=== PATIENT | female | born 1980 | race Caucasian/White ===

== ENCOUNTER 2020-12-14 12:54 | Outpatient (CLI) | payer OTHER, SELFPAY | END 2020-12-14 12:55 | disposition home or self-care (01) | LOC: ONCMED 13:00 | PROVIDERS: PCP Family Medicine; Visit Provider Family Medicine | DX: Z45.2 Encounter for adjustment and management of vascular access device (principal) | CPT/HCPCS: 96523 ==

== ENCOUNTER 2021-01-13 11:00 | Outpatient (CLI) | payer OTHER, SELFPAY | END 2021-01-13 11:01 | disposition home or self-care (01) | LOC: ONCMED 11:03 | PROVIDERS: PCP Family Medicine; Visit Provider Internal Medicine Medical Oncology | DX: Z45.2 Encounter for adjustment and management of vascular access device (principal) | CPT/HCPCS: 96523 ==

== ENCOUNTER 2021-06-10 23:23 | Emergency (ER) | payer OTHER, SELFPAY ==
[2021-06-10 23:43] VITALS: PULSE 70; RESP 18; TEMP 36.7; O2SAT 99; BMI 32.5
--- NOTE | 2021-06-11 00:04 | USR_ITS ---
PROCEDURE INFORMATION: Exam: US Duplex Left Lower Extremity Veins, Limited Exam date and time: 06/11/2021 12:04 AM Age: 40 years old Clinical indication: Pain; Leg, lower; Left; Additional info: HX of dvt, left and pe, - left leg pain TECHNIQUE: Imaging protocol: Real-time Duplex ultrasound of the Left Lower Extremity with 2-D cordon scale, color Doppler flow and spectral waveform analysis with image documentation. Limited exam focused on the left lower extremity veins. COMPARISON: No relevant prior studies available. FINDINGS: Left deep veins: Unremarkable. The common femoral, femoral, proximal profunda femoral and popliteal veins are patent without thrombus. Normal Doppler waveforms. Normal compressibility and/or augmentation response. Left superficial veins: Unremarkable. Saphenofemoral junction is patent without thrombus. Soft tissues: Unremarkable. US/[id number] IMPRESSION: No evidence of deep vein thrombosis. Radiation Dose CTDIVOL = (mGy): DLP = (mGy-cm)
--- NOTE | 2021-06-11 00:06 | W.ED.EXTPRO ---
Documented by User: DAKOTA Barclay 06/11/21 01:51 HPI - Extremity Problem General: Chief complaint: Extremity Problem,Nontraumatic Stated complaint: covid exposure, wanted checked for DVT Time Seen by Provider: 06/10/21 23:56 History of Present Illness: HPI Narrative: Patient complains about left leg pain couple days. 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 After cancer treatment. Patient was on blood thinner x6 months. Patient states that she had COVID symptoms that started approximately 13 days ago. , Diarrhea , nausea and vomiting, muscle, body aches, headache. Patient states she has been measuring her left leg and no real difference in size he should adjust does not feel right. Hurts with movement. Complaint: extremity pain Onset (ago): day(s) Pain Consistency: constant Location: left and lower extremity Severity scale (1-10): 3 Quality: aching Relieving factors: nothing Exacerbating factors: range of motion Associated symptoms: Reports no associated symptoms; Deny chest pain, fever(s) or rash Review of Systems Const: Denies: fever(s), chills or body aches Eyes: Denies: change in vision or blurry vision ENMT: Denies: throat pain or nasal congestion Card: Denies: chest pain or dyspnea on exertion Resp: Denies: dyspnea, productive cough or non-productive cough GI: Denies: abdominal pain, nausea or vomiting Musc: Reports: extremity pain Skin/Breast: Denies: rash Neuro: Denies: headache(s) Psych: Denies: anxiety or depression Jayy/Lymph: Denies: easy bruising PFSH ED PFSH: Medical History Autoimmune cholangitis Cardiac arrhythmia Family history of cancer Family history of cardiac disorder Family history of cardiomyopathy Family history of cerebral palsy Family history of diabetes mellitus Family history of Graves' disease Family history of Parkinson disease Family history of Raynaud's syndrome Family hx-asthma History of asthma History of back pain History of chemotherapy Hx of breast cancer Hx of pulmonary embolus Hx of radiation therapy Personal history of DVT (deep vein thrombosis) Port-A-Cath in place Rectus diastasis of lower abdomen Surgical History History of abdominal surgery History of ERCP History of liver biopsy History of loop recorder History of lymph node dissection of axilla History of oral surgery History of placement of ear tubes History of salpingo-oophorectomy Hx of cholecystectomy Hx of lumpectomy Family History Family/Other Diabetes Cancer Graves disease Cerebral palsy Brother Lung disease Father CAD (coronary artery disease) Stroke Grandfather Parkinson disease Lung disease Dementia Grandmother Cancer Dementia Mother CAD (coronary artery disease) Sister Raynauds disease Denies family history of Clotting disorder Suicide Anesthesia complication Bleeding disorder Social History Smoking and tobacco status: never smoked Alcohol intake: never Physical Exam Const: COMMON NORMALS: no acute distress, average body habitus and patient oriented x3 HENMT: COMMON NORMALS: normocephalic HEAD & SCALP: normal to inspection and normocephalic FACE & SINUS: normal facial exam Eye: COMMON NORMALS: conjunctivae normal GENERAL EYE: appearance normal, both eyes and all related structures CONJUNCTIVA: Yes conjunctivae normal Neck/C-Spine: COMMON NORMALS: no JVD Chest: COMMONS NORMALS: normal inspection of the chest Resp: COMMON NORMALS: normal respiratory effort and clear to auscultation bilaterally AUSCULTATION: clear to auscultation bilaterally Cardio: COMMON NORMALS: no JVD, regular rate and regular rhythm RATE: regular rate RHYTHM: regular rhythm GI: COMMON NORMALS: Normal to inspection, nondistended, normoactive bowel sounds present Extremity: COMMON NORMALS: normal to inspection and full ROM OTHER: Tenderness motion is behind left knee. No redness swelling noted. Homans' sign is negative. Neurovascular status intact. Neuro: COMMON NORMALS: patient oriented x3 Course Vital Signs: Vital signs: Vital Signs Temperature 98.1 F 06/10/21 23:43 Pulse Rate 78 06/11/21 01:54 Respiratory Rate 18 06/11/21 01:54 Blood Pressure 124/78 06/11/21 01:54 Pulse Oximetry 98 06/11/21 01:54 MDM - Extremity (Nontraumatic) MDM Narrative: Medical decision making narrative: Patient with diagnosis acute left leg pain. Most likely related to her recent bout with Covid type symptoms. I suspect muscle inflammation or pull. Radiology ultrasound today was negative for DVT. Patient has no other presenting signs symptoms. Patient will follow-up primary care provider as necessary. Discharge Plan Discharge Patient Disposition: Home Clinical Impression: Left leg pain Condition: Stable Prescriptions: No Action gabapentin 300 mg capsule 300 mg PO TID RF: 0 albuterol sulfate 90 mcg/actuation HFA aerosol inhaler 2 puff inhalation Q6H PRNRF: 0 celecoxib [Celebrex] 200 mg capsule 200 mg PO DAILY RF: 0 metoprolol succinate 25 mg tablet extended release 24 hr 12.5 mg PO DAILY RF: 0 Discharge Orders: Discharge ED (Routine); Ordered 06/11/21 Ordered By: aFb Elmore Referrals: Radha Pardo MD [Primary Care Provider] - Discharge Diet: Usual diet Discharge Activity: Resume usual activity Activity Restrictions/Additional Instructions: Can take Tylenol or ibuprofen for discomfort. Can use moist heat. Follow-up your family medical provider if no significant improvement. Coding Level of Care Code ED Glass Blowing Lathe Operator for Chg Fwd Exam Comprehensive Documented by User: Hector Sandoval DO 06/11/21 02:29 HPI - Extremity Problem General: Chief complaint: Extremity Problem,Nontraumatic Stated complaint: covid exposure, wanted checked for DVT Time Seen by Provider: 06/10/21 23:56 [facility] ED PFSH: Medical History Autoimmune cholangitis Cardiac arrhythmia Family history of cancer Family history of cardiac disorder Family history of cardiomyopathy Family history of cerebral palsy Family history of diabetes mellitus Family history of Graves' disease Family history of Parkinson disease Family history of Raynaud's syndrome Family hx-asthma History of asthma History of back pain History of chemotherapy Hx of breast cancer Hx of pulmonary embolus Hx of radiation therapy Personal history of DVT (deep vein thrombosis) Port-A-Cath in place Rectus diastasis of lower abdomen Surgical History History of abdominal surgery History of ERCP History of liver biopsy History of loop recorder History of lymph node dissection of axilla History of oral surgery History of placement of ear tubes History of salpingo-oophorectomy Hx of cholecystectomy Hx of lumpectomy Family History Family/Other Diabetes Cancer Graves disease Cerebral palsy Brother Lung disease Father CAD (coronary artery disease) Stroke Grandfather Parkinson disease Lung disease Dementia Grandmother Cancer Dementia Mother CAD (coronary artery disease) Sister Raynauds disease Denies family history of Clotting disorder Suicide Anesthesia complication Bleeding disorder Social History Smoking and tobacco status: never smoked Alcohol intake: never Course Vital Signs: Vital signs: Vital Signs Temperature 98.1 F 06/10/21 23:43 Pulse Rate 78 06/11/21 01:54 Respiratory Rate 18 06/11/21 01:54 Blood Pressure 124/78 06/11/21 01:54 Pulse Oximetry 98 06/11/21 01:54 MDM - Extremity (Nontraumatic) MDM Narrative: Medical decision making narrative: This patient was originally seen by DAKOTA Joseph. I agree with his history, evaluation, and treatment. Discharge Plan Discharge Patient Disposition: Home Clinical Impression: Left leg pain Condition: Stable Prescriptions: No Action gabapentin 300 mg capsule 300 mg PO TID RF: 0 albuterol sulfate 90 mcg/actuation HFA aerosol inhaler 2 puff inhalation Q6H PRNRF: 0 celecoxib [Celebrex] 200 mg capsule 200 mg PO DAILY RF: 0 metoprolol succinate 25 mg tablet extended release 24 hr 12.5 mg PO DAILY RF: 0 Discharge Orders: Discharge ED (Routine); Ordered 06/11/21 Ordered By: Fab Elmore Referrals: Radha Pardo MD [Primary Care Provider] - Discharge Diet: Usual diet Discharge Activity: Resume usual activity Activity Restrictions/Additional Instructions: Can take Tylenol or ibuprofen for discomfort. Can use moist heat. Follow-up your family medical provider if no significant improvement. Coding Level of Care Code ED Glass Blowing Lathe Operator for Chg Fwd Exam Comprehensive
[2021-06-11 01:35] VITALS: PULSE 63
[2021-06-11 01:54] VITALS: BP 124/78; PULSE 78; RESP 18; O2SAT 98
== END 2021-06-11 01:55 | disposition home or self-care (01) ==
PROVIDERS: Emergency Provider Nurse Practitioner Family; PCP Family Medicine
DX: M79.605 Pain in left leg (principal); Z85.3 Personal history of malignant neoplasm of breast; Z92.21 Personal history of antineoplastic chemotherapy; Z86.711 Personal history of pulmonary embolism; Z92.3 Personal history of irradiation
CPT/HCPCS: 93971; 99282